=== PATIENT | female | born 1985 | race African-American/Black ===

== ENCOUNTER 2017-03-16 06:57 | Inpatient (IN) | payer OTHER ==
[~2017-03-16] VITALS: Ht 170.2 cm; Wt 78.6 kg
[~2017-03-16 06:57] MED LIST: AMBIEN5 MG PO; COLACE100 MG PO; DECADRON2 MG PO; DEXAMETHASONE4 MG PO; FOLIC ACID1 MG PO; HYDROMORPHONE HC2 MG PO; KONSYL PSYLLIU3.4 GM PO; ORTHO EVRA PA1 PATCH PO; OXYCODONE-ACET1 EACH PO; PREDNISONE10 MG PO; TRAMADOL HCL50 MG PO; ULTRAM50 MG PO; ZOLPIDEM TARTRAT5 MG PO
[2017-03-16] MEDS ORDERED: NAPROXEN SODIU220 M1 PO (07:18)
[2017-03-16 07:19] VITALS: BP 127/84
[2017-03-16 16:26] VITALS: BP 111/64
[2017-03-16 18:31] LABS: HEMATOCRIT 31.7 % (36.0-46.0); MCH 28.7 PG (29.0-34.0); MCHC 33.8 G/DL (30.0-36.0); PLATELET COUNT 185 K/uL (156-360); RBC DIS.WIDTH-CV 12.3 % (11.8-14.6); RBC DIS.WIDTH-SD 38.5 % (39-53); RED BLOOD COUNT 3.73 M/uL (3.80-5.20)
[2017-03-16 18:46] LABS: ANION GAP 8 MEQ/L (2-14); CHLORIDE 108 MEQ/L (99-109); GFR ESTIMATE (CALCULATED) > 59 mL/min/; GLUCOSE 101 mg/dL (70-99); POTASSIUM 3.9 MEQ/L (3.7-5.4); SAMPLE HEMOLYSIS CHECK 0; SAMPLE ICTERIC CHECK 0; SAMPLE LIPEMIA CHECK 0; SODIUM 141 MEQ/L (136-147); UREA NITROGEN (BUN) 10 mg/dL (9-23)
[2017-03-16 20:40] LABS: WHITE BLOOD COUNT 17.5 K/uL (4.1-10.2)
[2017-03-16 23:57] VITALS: BP 98/57
[2017-03-17] VITALS (7 sets, daily range): BP systolic 91–124; BP diastolic 50–64
[2017-03-17 07:07] LABS: HEMATOCRIT 29.7 % (36.0-46.0); MCHC 33.7 G/DL (30.0-36.0); MCV 86.1 FL (83-99); MEAN PLAT.VOLUME 10.4 uM^3 (9.5-12.4); PLATELET COUNT 196 K/uL (156-360); RBC DIS.WIDTH-CV 12.4 % (11.8-14.6); RBC DIS.WIDTH-SD 38.9 % (39-53); RED BLOOD COUNT 3.45 M/uL (3.80-5.20); WHITE BLOOD COUNT 13.1 K/uL (4.1-10.2)
[2017-03-17 07:10] LABS: ANION GAP 7 MEQ/L (2-14); CHLORIDE 107 MEQ/L (99-109); GFR ESTIMATE (CALCULATED) > 59 mL/min/; GLUCOSE 96 mg/dL (70-99); POTASSIUM 3.6 MEQ/L (3.7-5.4); SAMPLE HEMOLYSIS CHECK 0; SAMPLE ICTERIC CHECK 0; SAMPLE LIPEMIA CHECK 0; SODIUM 140 MEQ/L (136-147); UREA NITROGEN (BUN) 7 mg/dL (9-23)
[2017-03-18 03:13] VITALS: BP 109/49
[2017-03-18 07:04] LABS: MCH 29.1 PG (29.0-34.0); MCHC 33.8 G/DL (30.0-36.0); MCV 86.1 FL (83-99); MEAN PLAT.VOLUME 9.8 uM^3 (9.5-12.4); RBC DIS.WIDTH-CV 12.5 % (11.8-14.6); RBC DIS.WIDTH-SD 39.3 % (39-53); RED BLOOD COUNT 3.37 M/uL (3.80-5.20)
[2017-03-18 07:05] LABS: PLATELET COUNT 276 K/uL (156-360); WHITE BLOOD COUNT 5.8 K/uL (4.1-10.2)
[2017-03-18 08:23] VITALS: BP 100/52
[2017-03-18 08:24] LABS: CHLORIDE 106 mEq/L (99-109)
[2017-03-18 08:25] LABS: SODIUM 137 mEq/L (136-147)
[2017-03-18 08:26] LABS: GLUCOSE 98 mg/dL (70-99)
[2017-03-18 08:28] LABS: ANION GAP 8 MEQ/L (2-14)
[2017-03-18 08:30] LABS: GFR ESTIMATE (CALCULATED) > 59 mL/min/
[2017-03-18 08:31] LABS: UREA NITROGEN (BUN) 3 mg/dL (9-23)
[2017-03-18 10:55] VITALS: BP 113/68
[2017-03-18 15:26] VITALS: BP 110/69
[2017-03-18] MEDS ORDERED: ENDOCET 5-3251 EACH PO (16:15)
[2017-03-18 19:00] VITALS: BP 115/69
[2017-03-18 23:08] VITALS: BP 11/60; BP 111/60
[2017-03-19 03:08] VITALS: BP 100/54
[2017-03-19 06:26] LABS: HEMATOCRIT 28.3 % (36.0-46.0); MCH 28.7 PG (29.0-34.0); MCHC 33.2 G/DL (30.0-36.0); MCV 86.3 FL (83-99); MEAN PLAT.VOLUME 9.7 uM^3 (9.5-12.4); PLATELET COUNT 351 K/uL (156-360); RBC DIS.WIDTH-CV 12.4 % (11.8-14.6); RBC DIS.WIDTH-SD 38.8 % (39-53); RED BLOOD COUNT 3.28 M/uL (3.80-5.20); WHITE BLOOD COUNT 4.9 K/uL (4.1-10.2)
[2017-03-19 07:05] VITALS: BP 106/69
[2017-03-19 11:40] VITALS: BP 134/86
== END 2017-03-19 12:50 | disposition home or self-care (01) | DRG 800 ==
LOC: 2SOUTH → 2EAST 06:57 → 2SOUTH 08:24 → 2EAST 15:44
PROVIDERS: Physician Assistant; Surgery
PROC: 07TP0ZZ Resection of Spleen, Open Approach (ICD-10-PCS; principal; 2017-03-16)
DX: D69.3 Immune thrombocytopenic purpura (principal); G71.0 Muscular dystrophy; E66.9 Obesity, unspecified; R16.1 Splenomegaly, not elsewhere classified; Z60.2 Problems related to living alone; Z68.27 Body mass index [BMI] 27.0-27.9, adult; Z56.0 Unemployment, unspecified; Z80.0 Family history of malignant neoplasm of digestive organs
CPT/HCPCS: 36415; 80048; 80053; 85025; 85027; 86900; 86901; 86920; 88305; J0330; J0690; J1100; J1170; J1885; J2250; J2405; J2710; J3010; S0020

== ENCOUNTER 2017-03-24 13:09 | Emergency (ER) | payer OTHER ==
[~2017-03-24] VITALS: Ht 170.2 cm; Wt 77.5 kg
[~2017-03-24 13:09] MED LIST changes: +ENDOCET 5-3251 EACH PO; +NAPROXEN SODIU220 M1 PO
[2017-03-24 14:14] LABS: HEMATOCRIT 34.2 % (36.0-46.0); MCH 28.3 PG (29.0-34.0); MCV 85.7 FL (83-99); MEAN PLAT.VOLUME 8.4 uM^3 (9.5-12.4); PLATELET COUNT 944 K/uL (156-360); RBC DIS.WIDTH-CV 12.3 % (11.8-14.6); RBC DIS.WIDTH-SD 38.7 % (39-53); RED BLOOD COUNT 3.99 M/uL (3.80-5.20)
[2017-03-24 14:17] LABS: CHLORIDE 108 mEq/L (99-109); POTASSIUM 3.5 mEq/L (3.7-5.4)
[2017-03-24 14:19] LABS: GLUCOSE 93 mg/dL (70-99)
[2017-03-24 14:21] LABS: ANION GAP 13 MEQ/L (2-14)
[2017-03-24 14:23] LABS: GFR ESTIMATE (CALCULATED) > 59 mL/min/
[2017-03-24 14:24] LABS: UREA NITROGEN (BUN) 16 mg/dL (9-23)
[2017-03-24 14:26] LABS: SODIUM 144 mEq/L (136-147)
[2017-03-24 14:31] LABS: QUANTITATIVE HCG < 4.0 MIU/ML
[2017-03-24] MEDS ORDERED: OXYCODONE HCL5 MG PO (18:28)
[2017-03-24] MEDS ORDERED: NABUMETONE500 MG PO (18:28)
[2017-03-24] MEDS ORDERED: PERCOCET 5/31 TABLET PO (18:29)
[2017-03-24 19:00] VITALS: BP 125/87
[2017-03-24 19:03] LABS: ADD MIUA? YES; BILIRUBIN NEGATIVE; BLOOD MODERATE; COLOR YELLOW ((YELLOW)); GLUCOSE (STRIP) NEGATIVE; KETONES 5; LEUKOCYTES MODERATE; NITRITE NEGATIVE; PROTEIN (STRIP) 30; SPECIFIC GRAVITY 1.014 (1.000-1.030); UROBILINOGEN 0.2 MG/DL (0.2-1.0)
[2017-03-24 19:24] LABS: ADD MEDTOX COMMENT Y; AMPHETAMINE NEGATIVE (500 ng/mL); BARBITURATES NEGATIVE (200 ng/mL); BENZODIAZEPINES PRESUMPTIVE POSITIVE (150 ng/mL); COCAINE NEGATIVE (150 ng/mL); INTERNAL CONTROLS VALID? YES; METHADONE NEGATIVE (200 ng/mL); METHAMPHETAMINE NEGATIVE (500 ng/mL); OPIATES (MORPHINE) PRESUMPTIVE POSITIVE (100 ng/mL); OXYCODONE PRESUMPTIVE POSITIVE (100 ng/mL); PHENCYCLIDINE NEGATIVE (25 ng/mL); PROPOXYPHENE NEGATIVE (300 ng/mL); THC CANNABINOIDS NEGATIVE (50 ng/mL); TRICYCLIC ANTIDEPRESSANTS NEGATIVE (300 ng/mL)
[2017-03-24 19:29] LABS: BACTERIA NONE SEEN /HPF; EPITHELIAL CELLS RARE /HPF; MUCUS TRACE /LPF; RED BLOOD CELLS TNTC /HPF (0-5); UCUL ADDED? YES; WHITE BLOOD CELLS TNTC /HPF (0-5)
[2017-03-24 20:00] LABS: BENZODIAZEPINES QUANT VALUE 0 NG/ML
[2017-03-24 20:11] LABS: BENZODIAZEPINES, URINE SCREEN Negative (200 ng/mL)
== END 2017-03-24 19:10 | disposition home or self-care (01) ==
LOC: EME 13:09
PROVIDERS: Emergency Medicine
DX: F33.1 Major depressive disorder, recurrent, moderate (principal); R45.851 Suicidal ideations; D64.9 Anemia, unspecified; R31.9 Hematuria, unspecified; K21.9 Gastro-esophageal reflux disease without esophagitis
CPT/HCPCS: 80048; 81003; 84702; 84999; 85027; 87077; 87086; 87186; 90837; 99281; 99285

== ENCOUNTER → 2017-06-27 | Emergency (ER) | payer OTHER ==
[~2017-06-27] VITALS: Ht 172.7 cm; Wt 82.1 kg
[~2017-06-27] MED LIST changes: +FLEXERIL10 MG PO; +MOTRIN800 MG PO; +NABUMETONE500 MG PO; +OXYCODONE HCL5 MG PO; +PERCOCET 5/31 TABLET PO
[2017-06-27 20:04] VITALS: BP 123/70
== END | disposition home or self-care (01) ==
LOC: EME 17:56
DX: S16.1XXA Strain of muscle, fascia and tendon at neck level, initial encounter (principal); S83.91XA Sprain of unspecified site of right knee, initial encounter; V89.2XXA Person injured in unspecified motor-vehicle accident, traffic, initial encounter; Y92.410 Unspecified street and highway as the place of occurrence of the external cause; K21.9 Gastro-esophageal reflux disease without esophagitis; F32.9 Major depressive disorder, single episode, unspecified; G71.0 Muscular dystrophy
CPT/HCPCS: 72040; 73564; 99281; 99283

== ENCOUNTER 2017-11-24 18:19 | Emergency (ER) | payer OTHER ==
[~2017-11-24] VITALS: Ht 170.2 cm; Wt 81.8 kg
[2017-11-24 18:24] VITALS: BP 126/83
[2017-11-24 19:36] LABS: HEMATOCRIT 34.6 % (36.0-46.0); HEMOGLOBIN 12.1 G/DL (11.9-15.5); MCH 29.6 PG (29.0-34.0); MCV 84.6 FL (83-99); PLATELET COUNT 521 K/uL (156-360); RBC DIS.WIDTH-SD 40.1 % (39-53); RED BLOOD COUNT 4.09 M/uL (3.80-5.20); WHITE BLOOD COUNT 15.4 K/uL (4.1-10.2)
[2017-11-24 19:48] LABS: CHLORIDE 104 mEq/L (99-109); POTASSIUM 3.7 mEq/L (3.7-5.4); SODIUM 138 mEq/L (136-147)
[2017-11-24 19:50] LABS: GLUCOSE 93 mg/dL (70-99)
[2017-11-24 19:54] LABS: CREATININE 0.5 mg/dL (0.6-1.3); GFR ESTIMATE (CALCULATED) > 59 mL/min/
[2017-11-24 19:55] LABS: UREA NITROGEN (BUN) 8 mg/dL (9-23)
[2017-11-24] MEDS ORDERED: MOTRIN600 MG PO (23:07)
[2017-11-24] MEDS ORDERED: FIORICET 50-301 EAC1 PO (23:07)
[2017-11-26] MEDS ORDERED: HYDROMORPHONE HC4 MG PO (08:08)
[2017-11-26] MEDS ORDERED: ZOFRAN4 MG PO (15:04)
[2017-11-26] MEDS ORDERED: ROXICODONE5 MG PO (15:04)
[2017-11-26] MEDS ORDERED: KEFLEX500 MG PO (15:04)
== END 2017-11-25 00:43 | disposition home or self-care (01) ==
LOC: EME 18:19
PROVIDERS: Physician Assistant
DX: G44.209 Tension-type headache, unspecified, not intractable (principal); E86.0 Dehydration; Z73.3 Stress, not elsewhere classified; K21.9 Gastro-esophageal reflux disease without esophagitis; F32.9 Major depressive disorder, single episode, unspecified; Z85.9 Personal history of malignant neoplasm, unspecified; Z90.49 Acquired absence of other specified parts of digestive tract
CPT/HCPCS: 70450; 80048; 81003; 85027; 87502; J1885; J3010; J7030

== ENCOUNTER 2017-11-26 07:51 | Emergency (ER) | payer OTHER ==
[~2017-11-26] VITALS: Ht 170.2 cm; Wt 84.5 kg
[~2017-11-26 07:51] MED LIST changes: +FIORICET 50-301 EAC1 PO; +MOTRIN600 MG PO
[2017-11-26] MEDS ORDERED: HYDROMORPHONE HC4 MG PO (08:08)
[2017-11-26 08:52] LABS: HEMATOCRIT 32.5 % (36.0-46.0); HEMOGLOBIN 11.1 G/DL (11.9-15.5); MCH 29.4 PG (29.0-34.0); MCHC 34.2 G/DL (30.0-36.0); PLATELET COUNT 433 K/uL (156-360); RBC DIS.WIDTH-CV 13.2 % (11.8-14.6); RBC DIS.WIDTH-SD 41.5 % (39-53); RED BLOOD COUNT 3.78 M/uL (3.80-5.20); WHITE BLOOD COUNT 20.3 K/uL (4.1-10.2)
[2017-11-26 09:03] LABS: CHLORIDE 101 mEq/L (99-109); POTASSIUM 3.1 mEq/L (3.7-5.4); SODIUM 135 mEq/L (136-147)
[2017-11-26 09:05] LABS: GLUCOSE 104 mg/dL (70-99)
[2017-11-26 09:09] LABS: CREATININE 0.5 mg/dL (0.6-1.3); GFR ESTIMATE (CALCULATED) > 59 mL/min/
[2017-11-26 09:10] LABS: UREA NITROGEN (BUN) 7 mg/dL (9-23)
[2017-11-26 09:17] LABS: QUANTITATIVE HCG < 4.0 MIU/ML
[2017-11-26 10:03] LABS: ALBUMIN 3.4 g/dL (3.2-4.8)
[2017-11-26 10:06] LABS: TOTAL PROTEIN 6.7 g/dL (6.4-8.3)
[2017-11-26 10:08] LABS: TOTAL BILIRUBIN 1.6 mg/dL (0.0-1.0)
[2017-11-26 10:09] LABS: ALKALINE PHOSPHATASE 243 IU/L (3-129)
[2017-11-26 10:11] LABS: AST (GOT) 351 IU/L (2-34)
[2017-11-26 10:12] LABS: ALT (GPT) 433 IU/L (3-49); DIRECT BILIRUBIN 1.1 mg/dL (0.0-0.3)
[2017-11-26 10:13] LABS: LIPASE 10 U/L (1.0-51.0)
[2017-11-26 11:25] LABS: APPEARANCE CLOUDY ((CLEAR)); BILIRUBIN NEGATIVE; BLOOD MODERATE; COLOR AMBER ((YELLOW)); GLUCOSE (STRIP) NEGATIVE; KETONES 20; LEUKOCYTES SMALL; NITRITE NEGATIVE; PROTEIN (STRIP) 100; SPECIFIC GRAVITY 1.012 (1.000-1.030)
[2017-11-26 11:38] LABS: BACTERIA 1+ /HPF; EPITHELIAL CELLS 2+ /HPF; MUCUS 2+ /LPF; WHITE BLOOD CELLS 40-50 /HPF (0-5)
[2017-11-26 12:09] LABS: MONOSPOT (MONONUCLEOSIS SEROL) NEGATIVE
[2017-11-26] MEDS ORDERED: KEFLEX500 MG PO (15:04)
[2017-11-26] MEDS ORDERED: ZOFRAN4 MG PO (15:04)
[2017-11-26] MEDS ORDERED: ROXICODONE5 MG PO (15:04)
[2017-11-26 15:35] VITALS: BP 103/68
== END 2017-11-26 15:59 | disposition home or self-care (01) ==
LOC: EME 07:51
PROVIDERS: Nurse Practitioner Family
DX: N12 Tubulo-interstitial nephritis, not specified as acute or chronic (principal); R74.0 Nonspecific elevation of levels of transaminase and lactic acid dehydrogenase [LDH]; R05 Cough; R51 Headache; D75.1 Secondary polycythemia; R00.0 Tachycardia, unspecified; R31.9 Hematuria, unspecified; Z90.81 Acquired absence of spleen; Z90.49 Acquired absence of other specified parts of digestive tract
CPT/HCPCS: 71020; 74176; 80048; 80076; 81003; 83605; 83690; 84702; 85027; 86308; 99281; 99285; J0696; J1885; J2405; J7030

== ENCOUNTER 2018-03-10 14:52 | Emergency (ER) | payer OTHER ==
[~2018-03-10] VITALS: Ht 170.2 cm; Wt 85.7 kg
[~2018-03-10 14:52] MED LIST changes: +HYDROMORPHONE HC4 MG PO; +KEFLEX500 MG PO; +ROXICODONE5 MG PO; +ZOFRAN4 MG PO
[2018-03-10] MEDS ORDERED: PERCOCET 5/31 TABLET PO (18:38)
[2018-03-10 19:01] VITALS: BP 110/76
== END 2018-03-10 19:04 | disposition home or self-care (01) ==
LOC: EME 14:52
DX: S40.012A Contusion of left shoulder, initial encounter (principal); S80.02XA Contusion of left knee, initial encounter; S09.90XA Unspecified injury of head, initial encounter; V48.5XXA Car driver injured in noncollision transport accident in traffic accident, initial encounter; Y92.410 Unspecified street and highway as the place of occurrence of the external cause; K21.9 Gastro-esophageal reflux disease without esophagitis; F32.9 Major depressive disorder, single episode, unspecified; Z79.891 Long term (current) use of opiate analgesic; Z98.890 Other specified postprocedural states; Z87.39 Personal history of other diseases of the musculoskeletal system and connective tissue; Z85.9 Personal history of malignant neoplasm, unspecified; Z90.49 Acquired absence of other specified parts of digestive tract; Z90.81 Acquired absence of spleen
CPT/HCPCS: 70450; 73030; 73060; 73564; 99281; 99283; J3010

== ENCOUNTER 2018-07-25 05:09 | Emergency (ER) | payer OTHER ==
[~2018-07-25] VITALS: Ht 170.2 cm; Wt 88.3 kg
[2018-07-25 05:51] VITALS: BP 126/80
== END 2018-07-25 05:51 | disposition home or self-care (01) ==
LOC: EME 05:09
DX: H10.9 Unspecified conjunctivitis (principal); Z97.3 Presence of spectacles and contact lenses
CPT/HCPCS: 99281; 99283